=== PATIENT | female | born 1995 | race Caucasian/White ===

== ENCOUNTER 2023-03-06 16:45 | Inpatient (IN) ==
[2023-03-06] MEDS ORDERED: LIDOCAINE 1% LOCAL 20 ML VIAL INFIL PRN (17:13)
[2023-03-06] MEDS ORDERED: LACTATED RINGER'S 1,000 ML IV PRN (17:13)
[2023-03-06] MEDS ORDERED: OXYTOCIN 30 UNITS/500 ML BAG IV PRN ×2 (17:13→18:18)
[2023-03-06 17:55] LABS: Hematocrit (blood only) 42.2 % (37.0-47.0); Hemoglobin 14.1 g/dl (12.0-16.0); Mean Corpuscular Hemoglobin 29.4 pg (25.0-34.0); Mean Corpuscular Hgb Conc 33.4 g/dL (32.0-36.0); Mean Corpuscular Volume 87.9 fL (80.0-100.0); Mean Platelet Volume 10.1 fL (9.4-12.4); Platelet Count 357 K/uL (130-400); RDW Coefficient of Variation 15.5 % (11.5-14.5); RDW Standard Deviation 48.9 fL (36.4-46.3); White Blood Count 21.21 K/ul (4.8-10.8)
[2023-03-06] MEDS ORDERED: OXYTOCIN 10 UNITS/ML VIAL ONE (18:05)
--- NOTE | 2023-03-06 18:14 | History & Physical Report ---
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 Chambers she is an active labor Allergies Allergy/AdvReac Type Severity Reaction Status Date / Time Penicillins Allergy Hives Verified 12/18/19 12:28 Sulfa (Sulfonamide Allergy Hives Verified 12/18/19 12:28 Antibiotics) Home Medications Medication Instructions Recorded Confirmed Type vit no.95-ferrous 2 tab PO DAILY 12/18/19 12/18/19 History fumarate 28 mg-folic acid 800 mcg tablet () Patient History Medical History (Updated 03/06/23 @ 18:10 by Jesús Adams MD, FACOG) No known health problems Surgical History (Updated 12/18/19 @ 12:00 by Sara Chiu RN) H/O wisdom tooth extraction Social History Smoking Status: Never smoker Hx Alcohol Use: No Hx Substance Use: No Preferred Language: [employer] Required: No Beliefs That Will Affect Care: None marital status: Current Living Situation: Spouse Feels Safe at Home: Yes Assistive Devices: None Review of Systems as per Subjective / HPI Physical Exam Constitutional: WD/WN, vitals as above well developed and well nourished Respiratory: normal respiratory effort, lungs clear to auscultation normal respiratory effort Cardiovascular: RRR, no murmur, no edema Gastrointestinal (Abdomen): normal bowel sounds, soft, nontender, no hepatosplenomegaly Results & Data Vital Signs (Past 12 Hours) Vital Signs Pulse BP 03/06/23 17:03 114 H 137/73 Code Status & VTE Plan VTE Prophylaxis Plan VTE Prophylaxis will be ordered: No Reason for no VTE drug order: Treatment not indicated Coding Level of Care Code 52999 INT INP/OBS CARE MIN Diagnoses Encounter for supervision of normal in multigravida Z34.80
--- NOTE | 2023-03-06 18:16 | Delivery Summary ---
Vaginal Delivery Summary Date of Service March 06, 2023 Vaginal Delivery Summary Patient seen presented in 2 fully dilated delivered a baby unmedicated in occiput anterior position fluid was clear there was no nuchal cord gentle traction the baby no excessive force easy delivery with live vigorous female infant cord clamped after pulsations stopped at request of mother and then cord cut placenta removed with gentle traction IV Pitocin started she had a second- degree tear we injected 1% lidocaine into the appropriate regions and repaired with 3-0 Vicryl sponge and instrument counts correct bleeding was appropriate after removal of placenta and oxytocin sponge instrument counts correct estimated blood loss 250 mL [facility] Vaginal Delivery Charge Vaginal Delivery Codes: 95606 vaginal delivery with post- care
[2023-03-06] MEDS ORDERED: BENZOCAINE 20% AER SPR 82.5 GM CAN EXT PRN (18:18)
[2023-03-06] MEDS ORDERED: DIPHTHERIA/TETANUS/PERTUSSIS Vaccine (Tdap, Age 7+yrs) 0.5mL SYR/VL IM ONE (18:18)
[2023-03-06] MEDS ORDERED: oxyCODONE/ACETAMINOPHEN 5mg/325mg TAB PO PRN (18:18)
[2023-03-06] MEDS ORDERED: bisacodyL 10 MG SUPP PR PRN (18:18)
[2023-03-06] MEDS ORDERED: HYDROCORTISONE ACETATE 25 MG SUPP PR PRN (18:18)
[2023-03-06] MEDS: IBUPROFEN 600 MG TAB PO PRN (18:56)
[2023-03-06] MEDS: DOCUSATE SODIUM 100 MG CAP PO SCH (20:12)
[2023-03-06] MEDS: ACETAMINOPHEN 325 MG TAB PO PRN (22:43)
[2023-03-07] MEDS: IBUPROFEN 600 MG TAB PO PRN ×2 (02:43→08:20)
[2023-03-07 06:54] LABS: Hematocrit (blood only) 32.6 % (37.0-47.0); Hemoglobin 10.8 g/dl (12.0-16.0); Mean Corpuscular Hemoglobin 29.3 pg (25.0-34.0); Mean Corpuscular Hgb Conc 33.1 g/dL (32.0-36.0); Mean Corpuscular Volume 88.3 fL (80.0-100.0); Mean Platelet Volume 9.9 fL (9.4-12.4); Platelet Count 255 K/uL (130-400); RDW Coefficient of Variation 15.4 % (11.5-14.5); RDW Standard Deviation 48.7 fL (36.4-46.3); Red Blood Count 3.69 M/uL (4.20-5.40); White Blood Count 17.67 K/ul (4.8-10.8)
--- NOTE | 2023-03-07 07:34 | Obstetrical Progress Note ---
Date of Service <Steffi CamachoDO jodi - Last Filed: 03/07/23 07:34> March 07, 2023 Assessment & Plan <Steffi CamachomichellefranciscoDO - Last Filed: 03/07/23 07:34> (1) care following vaginal delivery: Patient is PPD 1 s/p and doing well. - Eating well, voiding well, ambulating well - Vitals reviewed and within normal limits - Pain well controlled with analgesics - OOB, ambulation, diet progression as tolerated - Rh neg, GBS neg, rubella status unknown - Plan to discharge today - After discharge, 6 [address] follow up with Dr. Adams <Jesús Adams MD, FACOG - Last Filed: 03/07/23 07:35> (1) care following vaginal delivery: Subjective <Steffi CamachoDO jodi - Last Filed: 03/07/23 07:34> Patient is a 27 yo female who is now PPD #1 following spontaneous vaginal delivery. Reports feeling well this morning. She denies abdominal cramping. Her pain is well managed on analgesics. Voiding without issue. Tolerating regular meals overnight and able to ambulate some. She has passed gas. Persistent lochia with some improvement this morning. Currently breast feeding. Review of Systems Denies fever, chills, sweats. Denies SOB, difficulty breathing, chest pain, palpitations, and chest pressure. Denies breast pain. Denies dysuria. Denies headache or changes in vision. Physical Exam <Steffi MataBrien Nguyen DO - Last Filed: 03/07/23 07:34> General: Alert and oriented. No acute distress. CV: Regular rate and rhythm. No murmurs. Respiratory: CTA bilaterally. No rhonchi, wheezes, or crackles. No increased work of breathing. Abdomen: Positive bowel sounds. Soft, nontender, non distended. Uterus: Fundus firm and palpable 3 cm below the umbilicus. Lower extremities: No LE edema. No deep calf pain. Results & Data <Steffi MataBrien Nguyen DO - Last Filed: 03/07/23 07:34> Vital Signs (Past 12 Hours) Vital Signs Temp Pulse Pulse Resp BP BP Pulse Ox 03/07/23 03:13 36.4 C L 78 14 110/69 97 03/06/23 23:15 36.6 C 81 16 124/79 97 03/06/23 20:53 36.9 C 101 H 16 107/68 97 03/06/23 20:00 36.8 C 18 03/06/23 19:58 102 H 03/06/23 19:58 117/64 03/06/23 19:43 92 H 03/06/23 19:43 116/62 O2 Del Method 03/07/23 03:13 Room Air 03/06/23 23:15 Room Air 03/06/23 20:53 Room Air 03/06/23 20:00 03/06/23 19:58 03/06/23 19:58 03/06/23 19:43 03/06/23 19:43 <Jesús Adams MD, FACOG - Last Filed: 03/07/23 07:35> Co-Signing Physician Notes Resident Physician Supervision Note: I was present with during the history and exam. I discussed the case with the resident and agree with the findings and plan as documented in the note. Any exceptions or clarifications are listed here: [None] Documented By: Jesús Adams MD, FACOG Resident Activity Tracking <Steffi Nguyen DO - Last Filed: 03/07/23 07:34> Resident Involvement: Resident Care Provided Care Provided: OB Delivery
[2023-03-07] MEDS ORDERED: PRENATAL VITAMIN 1 TAB PO SCH (08:00)
[2023-03-07] MEDS: DOCUSATE SODIUM 100 MG CAP PO SCH (08:20)
[2023-03-07] MEDS: ACETAMINOPHEN 325 MG TAB PO PRN (13:25)
[2023-03-07] MEDS ORDERED: bisacodyL 5 MG TABEC PO SCH (20:00)
== END 2023-03-07 18:35 | disposition home or self-care (01) | DRG 807 ==
LOC: 4S1 16:45 → 4E2 20:45